=== PATIENT | male | born 1980 | race Caucasian/White ===

== ENCOUNTER 2023-01-28 07:46 | Emergency (ER) | payer MEDICAID, OTHER ==
[~2023-01-28] VITALS: Ht 175.3 cm; Wt 113.4 kg
[2023-01-28 08:54] VITALS: BP 152/111; PULSE 87; RESP 16; TEMP 98.4; O2SAT 99
[2023-01-28] MEDS ORDERED: TRIAMCINOLONE 40MG/ML 1ML VIAL IX ONE (10:00)
[2023-01-28] MEDS ORDERED: LIDOCAINE 1% HCL (LOCAL ANESTH.) INJ 20ML MDV ID ONE (10:00)
[2023-01-28] MEDS ORDERED: MELO-335 PO (10:51)
== END 2023-01-28 10:52 | disposition home or self-care (01) ==
LOC: ER 07:46
DX: M17.12 Unilateral primary osteoarthritis, left knee (principal); J45.909 Unspecified asthma, uncomplicated
CPT/HCPCS: 20610; 73562; 99283; J2001; J3301